=== PATIENT | male | born 1980 | race African-American/Black ===

== ENCOUNTER 2016-06-06 09:52 | Emergency (ER) | payer SELFPAY ==
[2016-06-06 10:06] VITALS: BP 136/90
--- NOTE | 2016-06-06 11:25 | EDM.PDOC ---
ED HPI ENT - General Chief Complaint: ENT Problem Stated Complaint: COUGH/EARS ARE PLUGGED Time Seen by Provider: 06/06/16 11:15 Source of Information: Reports: Patient History Limitations: Reports: No limitations - History of Present Illness INITIAL COMMENTS - FREE TEXT/NARRATIVE: Patient presents for evaluation and treatment of a productive cough and bilateral ear discomfort. Patient reports been ill for the last 3 weeks. He states that he has been coughing up a thick yellow phlegm. He reports that his ears feel plugged and is difficulty hearing. He denies any fevers, nausea, vomiting, sore throat, headaches or sinus pressure. Patient reports that his and child are also ill. They received antibiotics. They are feeling Better but he is still ill. Location: Reports: right Ear, left Ear - Related Data Allergies/ADRs: Allergies Allergy/AdvReac Type Severity Reaction Status Date / Time Sulfa (Sulfonamide Allergy Cannot Verified 06/06/16 10:00 Antibiotics) Remember Home Meds: Home Meds Azithromycin [IJD: Azithromycin] 250 mg PO ASDIRECTED #6 tab 06/06/16 [Rx] Past Medical History - Past Health History Medical/Surgical History: Denies Medical/Surgical History Social & Family History - Tobacco Use Smoking Status *Q: Current Every Day Smoker Years of Tobacco use: 10 Packs/Tins Daily: 0.5 - Caffeine Use Caffeine Use: Reports: Coffee - Recreational Drug Use Recreational Drug Use: No Recreational Drug Type: Reports: Marijuana/Hashish Recreational Drug Use Frequency: Rarely - Living Situation & Occupation Living situation: Reports: with significant other Occupation: employed ED ROS ENT - Review of Systems Review Of Systems: See Below Constitutional: Denies: fever HEENT: Reports: Ear pain. Denies: Sinus problem, Throat pain Respiratory: Reports: Cough, Sputum GI/Abdominal: Denies: Nausea, Vomiting Neurological: Denies: Headache ED EXAM, ENT - Physical Exam Exam: See Below Exam Limited By: No limitations General Appearance: alert, WD/WN, no apparent distress Ears: normal external exam, normal canal, hearing grossly normal, TM fluid Nose: normal inspection Mouth/Throat: Normal inspection, Normal lips, Normal oropharynx Neck: normal inspection. No: lymphadenopathy (L), lymphadenopathy (R) Respiratory/Chest: no respiratory distress, rhonchi (bilateral lung bases), wheezing (expiratory, diffuse) Cardiovascular: normal peripheral pulses, regular rate, rhythm, no murmur Neurological: alert, oriented, normal cognition Psychiatric: normal affect, normal mood Skin: Warm, Dry, Normal color Course - Vital Signs Last Recorded V/S: Last Vital Signs Temp 36.7 C 06/06/16 10:01 Pulse 76 06/06/16 10:01 Resp 12 06/06/16 10:01 BP 136/90 06/06/16 10:01 Pulse Ox 97 06/06/16 10:01 - Orders/Labs/Meds Orders: Active Orders 24 hr Category Date Time Status Chest 2V [CR] Stat Exams 06/06/16 11:15 Taken - Radiology Interpretation Free Text/Narrative:: chest xray shows no acute intrathoracic process. - Re-Assessments/Exams Free Text/Narrative Re-Assessment/Exam: 06/06/16 11:46 I reviewed the chest xray with the patient. Will prescribe an antibiotic for bronchitis. Discharge instructions as documented. Departure - Departure Time of Disposition: 11:50 Disposition: Home, Self-Care 01 Condition: fair Clinical Impression: Bronchitis, Otitis media with effusion Prescriptions: Azithromycin [IJD: Azithromycin] 250 mg PO ASDIRECTED #6 tab Referrals: PCP,None [Primary Care Provider] - Forms: ED Department Discharge Additional Instructions: OTC flonase to help reduce the fluid behind the ears. 1 spray each nostril bid. take the azithromycin As prescribed. 2 tabs day one followed by one tab days 2 through 5. drink plenty of fluids. may take [id number] Tylenol or Motrin as needed for additional pain and symptom relief. Followup with your primary care provider if symptoms do not improve within 10- 14 days. Please return to the ER should your symptoms change or worsen. - My Orders Last 24 Hours: My Active Orders 06/06/16 11:15 Chest 2V [CR] Stat - Assessment/Plan Last 24 Hours: My Active Orders 06/06/16 11:15 Chest 2V [CR] Stat
--- NOTE | 2016-06-06 13:54 | CR ---
Chest: Two views of the chest were obtained. Comparison: No previous study. Heart size and mediastinum are normal. Lungs are clear. Bony structures are unremarkable for the patient's age. Impression: 1. Nothing acute is identified on two-view chest x-ray. Diagnostic code #1
== END 2016-06-06 12:22 | disposition home or self-care (01) ==
LOC: JD.ED 09:52
DX: J40 Bronchitis, not specified as acute or chronic (principal); H65.90 Unspecified nonsuppurative otitis media, unspecified ear; F17.210 Nicotine dependence, cigarettes, uncomplicated; Z88.2 Allergy status to sulfonamides
CPT/HCPCS: 71020; 71020-26; 99283

== ENCOUNTER 2019-06-01 19:46 | Emergency (ER) | payer SELFPAY ==
[2019-06-01 20:02] VITALS: BP 156/90; PULSE 88
--- NOTE | 2019-06-01 20:12 | EDM.PDOC ---
ED HPI GENERAL MEDICAL PROBLEM - General Chief Complaint: Lower Extremity Injury/Pain Stated Complaint: PAINFUL RIGHT KNEE Time Seen by Provider: 06/01/19 20:02 - History of Present Illness INITIAL COMMENTS - FREE TEXT/NARRATIVE: 38-year-old male presents the emergency room with a right knee injury. Earlier this afternoon the patient stepped in a hole and his knee twisted outward. Since that time he has had pretty significant pain on the outside of his leg. He denies any ankle injury or no hip injury no other associated injuries with this unfortunate event. Right Knee Pain Score (Numeric/FACES): 10 - Related Data Allergies Allergy/AdvReac Type Severity Reaction Status Date / Time Sulfa (Sulfonamide Allergy Cannot Verified 06/06/16 10:00 Antibiotics) Remember Home Meds: Home Meds . [No Known Home Meds] 06/01/19 [History] Past Medical History - Past Health History Medical/Surgical History: Denies Medical/Surgical History Social & Family History - Caffeine Use Caffeine Use: Reports: Coffee - Living Situation & Occupation Living situation: Reports: with Significant Other Occupation: Employed Review of Systems - Review of Systems Review Of Systems: See Below Constitutional: Reports: No Symptoms Nose: Reports: No Symptoms Mouth/Throat: Reports: No Symptoms Respiratory: Reports: No Symptoms Cardiovascular: Reports: No Symptoms GI/Abdominal: Reports: No Symptoms Genitourinary: Denies: No Symptoms Musculoskeletal: Reports: Other (Knee pain as stated above) Skin: Reports: No Symptoms ED EXAM, GENERAL - Physical Exam Exam: See Below Exam Limited By: No Limitations General Appearance: Alert, No Apparent Distress Head: Atraumatic, Normocephalic Neck: Normal Inspection, Supple, Non-Tender, Full Range of Motion Respiratory/Chest: No Respiratory Distress, Lungs Clear, Normal Breath Sounds Cardiovascular: Regular Rate, Rhythm, No Edema, No Murmur Extremities: Other (Patient is right lower leg shows a knee with mild swelling hip range of motion appears to be intact knee is tender but he will let me go through some testing is ACL is difficult to test because he will not relax fully meniscal testing is not practical medial collateral ligament appears to be intact he has no medial joint line tenderness little he has lateral joint line tenderness and there is some apparent laxity in the lateral collateral ligament however when it starts to give he tightens up and that seem to the exam neurovascular status of the foot is entirely within normal limits.) Course - Vital Signs Last Recorded V/S: Last Vital Signs Temp 36.9 C 06/01/19 20:00 Pulse 88 06/01/19 20:00 Resp 20 06/01/19 20:00 BP 156/90 H 06/01/19 20:00 Pulse Ox 97 06/01/19 20:00 - Orders/Labs/Meds Orders: Active Orders 24 hr Category Date Time Status Durable Medical Equipment for Discharge [DME for Oth 06/01/19 20:28 Ordered Discharge] [COMM] Stat Durable Medical Equipment for Discharge [DME for Oth 06/01/19 20:28 Ordered Discharge] [COMM] Stat - Re-Assessments/Exams Free Text/Narrative Re-Assessment/Exam: 06/01/19 20:34 X-ray the patient refused this because of financial concerns. I informed him there is a chance we could miss something by not x-ray and it he understands this risk and is willing to accept it. Patient agrees to wear a knee immobilizer and use crutches and will follow-up in the clinic in 1 week. Departure - Departure Time of Disposition: 20:34 Disposition: Home, Self-Care 01 Clinical Impression: Right knee injury - Discharge Information Instructions: Knee Sprain, Adult Referrals: PCP,None [Primary Care Provider] - Forms: ED Department Discharge Additional Instructions: Return to the emergency room with any questions problems or worsening symptoms. Follow-up in the hospital clinic in 1 week to be rechecked [phone] Wear the knee immobilizer at all times and use the crutches at all times. You will not be able to drive with the knee immobilizer on. And should not drive while your knee is healing up Sepsis Event Note - Focused Exam Vital Signs: Vital Signs Temp Pulse Resp BP Pulse Ox 06/01/19 20:00 36.9 C 88 20 156/90 H 97 Date Exam was Performed: 06/01/19 Time Exam was Performed: 20:44 - My Orders Last 24 Hours: My Active Orders 06/01/19 20:28 Durable Medical Equipment for Discharge [DME for Discharge] [COMM] Stat Durable Medical Equipment for Discharge [DME for Discharge] [COMM] Stat - Assessment/Plan Last 24 Hours: My Active Orders 06/01/19 20:28 Durable Medical Equipment for Discharge [DME for Discharge] [COMM] Stat Durable Medical Equipment for Discharge [DME for Discharge] [COMM] Stat
[2019-06-01] MEDS ORDERED: Acetaminophen 325 MG Tab PO ONE (20:51)
== END 2019-06-01 21:23 | disposition home or self-care (01) ==
LOC: JD.ED 19:46
DX: S89.91XA Unspecified injury of right lower leg, initial encounter (principal); Z88.2 Allergy status to sulfonamides; W17.2XXA Fall into hole, initial encounter
CPT/HCPCS: 99283; A9270